=== PATIENT | male | born 1935 | race Caucasian/White ===

== ENCOUNTER → 2017-11-21 | Day surgery (SDC) | payer MEDICARE ==
[2017-10-23 11:36] LABS: BASOPHILS % 0.9 % (0.0-1.0); EOSINOPHILS # (AUTO) 0.1 (0.0-0.4); EOSINOPHILS % 2.2 % (0.0-6.0); HEMATOCRIT 43.4 % (38.2-49.6); HEMOGLOBIN 14.4 g/dL (14.0-18.0); LYMPHOCYTES # (AUTO) 1.6 (1.0-3.2); LYMPHOCYTES % 35.4 % (18.0-39.1); MEAN CORPUSCULAR HEMOGLOBIN 29.4 pg (28-32); MEAN CORPUSCULAR HGB CONC 33.2 g/dL (31-35); MEAN CORPUSCULAR VOLUME 88.8 fL (81-99); MONOCYTES # (AUTO) 0.4 (0.2-0.8); MONOCYTES % 9.6 % (4.4-11.3); NEUTROPHILS # (AUTO) 2.4 (2.1-6.9); NEUTROPHILS % 51.9 % (38.7-80.0); PLATELET COUNT 111 x10e3/uL (140-360); RED BLOOD COUNT 4.89 x10e6/uL (4.3-5.7); RED CELL DISTRIBUTION WIDTH 15.3 % (11.7-14.4)
[2017-10-23 12:02] LABS: INR 1.02; PROTHROMBIN TIME 13.9 seconds (11.9-14.5)
[2017-10-23 12:03] LABS: PARTIAL THROMBOPLASTIN TIME 30.8 seconds (23.8-35.5)
[2017-10-23 12:09] LABS: ALBUMIN 3.5 g/dL (3.5-5.0); ALBUMIN/GLOBULIN RATIO 0.8 (0.8-2.0); ANION GAP 16.5 mmol/L (8-16); CALCIUM 9.2 mg/dL (8.4-10.2); CREATININE, SERUM 1.23 mg/dL (0.72-1.25); POTASSIUM 4.5 mmol/L (3.5-5.1)
[~2017-11-21] MED LIST: AMLODIPINE BESY10 MG PO; BAYER ASPIRIN PO; CLOPIDOGREL75 MG PO; ELLIPTA INH; EPINEPHRINE HCL INJ 1 MG/ML AMP ONE; FENTANYL CITRATE/PF 100MCG/2 ML INJ ONE; FINASTERIDE5 MG PO; FLOMAX0.4 MG PO; FOSINOPRIL SODI10 MG PO; FUROSEMIDE40 MG PO; JALYN 0.5-0.41 EACH PO; LIDOCAINE HCL 2% LOCAL INJ 5 ML SDV VIAL INJ ONE; LIDOCAINE HCL 4% 50 ML BTL ONE; LIDOCAINE JELLY 2% 10ML URO-JET ONE; LOVAZA1 GM PO; METAMUCIL PO; MIDAZOLAM HCL 2 MG/2 ML VIAL ONE; OMEGA 3 PO; OXYMETAZOLINE HCL 0.05% NAS 1 SPRAY BTL ONE; PANTOPRAZOLE SO40 MG PO; PROAIR HFA INH8.5 GM INH; PROPOFOL IV EMULSION 10 MG/ML 20 ML VIAL ONE
--- OUTSIDE RECORDS SUMMARY | 2017-11-21 08:17 | XMS REPORT ---
Author Author [facility] Address Unknown Phone Unavailable Care Team Providers Care Geospatial Imagery Intelligence Analyst Name Role Phone PHILL TIM Unavailable Unavailable Problems This patient has no known problems. Allergies, Adverse Reactions, Alerts This patient has no known allergies or adverse reactions. Medications This patient has no known medications. Results Test Description Test Time Test Comments Text Results Atomic Results Result Comments CT CHEST WO [place] [address] Patient Name: TYLER RAMÍREZ MR #: [id number] : 1935 Age/Sex: 82/M Req #: [id number] Adm Physician: Ordered by: PHILL TIM MD Report #: [id number] Location: CT Room/Bed: Procedure: [id number] CT/CT CHEST WO Exam Date: 09/28/17 Exam Time: 1615 REPORT STATUS: Signed PROCEDURE: CT CHEST WITHOUT CONTRAST CT scan of the chest WITHOUT intravenous contrast, using high-resolution protocol. TECHNIQUE: The chest was scanned utilizing a multidetector helical scanner from the apex to the level of the adrenal glands. No IV contrast was administered per protocol. Coronal and sagittal multiplanar reformations were obtained. COMPARISON: [facility], CT, CT CHEST WO, 05/16/2017, 9:56. INDICATIONS: SOB, COUGH, AND CHEST PAIN WITH INSPIRATION FOR 2-3 MONTHS, HRCT FINDINGS: Lines/tubes: None. Lungs and Airways: No significant interval change in intralobular septal thickening and scattered groundglass opacities predominantly involving the lower lobes, with associated cylindrical bronchiectasis, when compared to prior exam. No impacted bronchi. Slight increase in mild compressive atelectasis of the right lower lobe. No interval change in scarring and traction bronchiectasis involving the right middle lobe, with evidence of volume loss (sagittal image 29). No significant honeycombing is noted. No masses or nodules. Expiratory films show scattered lucent areas with decreased caliber of vessels involving predominantly the upper lobes and superior segment of the lower lobes. Prone views showed decreased compressive atelectasis in the right lower lobe, without any other changes. Central airways are clear, without endobronchial lesions. Pleura: Slight interval increase in size of right-sided pleural effusion. Stable trace left pleural effusion. Heart and mediastinum: Thyroid is unremarkable. Moderate cardiomegaly. No pericardial effusion. Atherosclerotic calcification of the aortic valve, coronary arteries and thoracic aorta. Aorta is non-aneurysmal. The main pulmonary artery is normal in caliber. CABG changes Lymph nodes: Stable mildly enlarged subcarinal lymph node, which measures approximately 1.4 cm in short axis (series 3, image 62). No other mediastinal , or any hilar, or axillary adenopathy. Stable subcentimeter, nonspecific mediastinal nodes. Abdomen: Limited views of the upper abdomen show no abnormality within the visualized liver, spleen. Fatty infiltration of the pancreas. Visualized adrenal glands are unremarkable. Bones: No acute bony abnormalities. Midline sternotomy wires. IMPRESSION: 1. slight interval increase in size of right-sided pleural effusion and compressive atelectasis of the right lower lobe. Stable trace left pleural effusion. 2. Stable findings of NSIP when compared to exam dated 05/16/2017 3. Scattered areas of air trapping in the upper lobes and superior segment of the lower lobes, similar to prior exam, likely reflecting small airways disease. Adis Gamboa M.D. Dictated by: Adis Gamboa M.D. on 09/28/2017 at 18:07 Electronically approved by: Adis Gamboa M.D. on 09/28/2017 at 18:07 Dictated By: ADIS GAMBOA MD [id number] Transcribed By: MATT on 09/28/17 180 COPY TO: PHILL TIM MD
[2017-11-21 12:14] LABS: BODY FLUID COLOR RED
[2017-11-21 12:19] LABS: BODY FLUID APPEARANCE SL.CLOUDY
[2017-11-21 12:55] LABS: BODY FLUID TYPE BRONCH LAVAGE
[2017-11-21 12:56] LABS: RBC,BODY FLUID 20444 cells/uL; WBC,BODY FLUID 2104 cells/uL
--- NOTE | 2017-11-21 13:33 | Operative Report ---
DATE OF PROCEDURE: November 21, 2017 PROCEDURES 1. Diagnostic flexible bronchoscopy. 2. Bronchoalveolar lavage of right middle lobe. 3. Bronchial washes. 4. Endobronchial biopsies, left upper lobe. 5. Endobronchial brushings, left upper lobe. INDICATION: Hemoptysis, diagnosis, interstitial lung disease for diagnosis. ANESTHESIA: Per anesthesiology. CONSENT: Informed consent taken from patient. FINDINGS: Endobronchial scope placed via oral bite block. The flexible bronchoscope was entered and inserted in through the vocal cords, which were seen to be bilaterally moving. Tracheobronchial tree was evaluated to be with normal configuration and no endobronchial masses. Detailed visualization taken to the 3rd to 4th order airways throughout. Right middle lobe was wedged and a BAL was performed there. There was slight progressive bloodiness on specimen. Patient with evaluation of left upper lobe in more detail as it appeared that it was definitely more friable and bloodier than other aspects of the airway, though the slightly bluish glistening surface of left upper lobe approaching anterior airway. No discrete mass here. Some brushings were taken of this area. Endobronchial biopsies were taken of the [place] around the lesion as the amount of bleedability seen foreboding to directly biopsy for the concern that a larger bleed may be triggered. Washings were taken of the area. While the surface of the glistening mucosa was thought to be source of the oozing after a few mobilizations and manipulations of scope in the airway, there was already enough blood there. Other segments were filled with bloodiness. After washes, we cannot completely clear the blood, but it is felt that it is likely this surface that the bleeding. However, the most anterior segment of the anterior segment of left upper lobe was felt to be less likely the source of the bleed. After the above procedures were performed, the scope was withdrawn and the patient was allowed to recover with anesthesiology. IMPRESSION 1. Status post BAL diagnostics for interstitial lung disease. 2. Mild alveolar hemorrhage surmised by BAL of right middle lobe. 3. Significantly increased bleedability emanating from left upper lobe surface at the CHICA foramen. Patient without any discrete mass here. RECOMMENDATIONS: Follow up results. If significant bleeding arises, consider bronchial angiography with IR. Patient will be considered for surveillance CAT scans versus bronchoscopy in the future. Cough medicines are recommended to suppress coughing and suppress the chance of bleeding. COMPLICATIONS: None. ESTIMATED BLOOD LOSS: None. Job#: [id number] PAT GLORIA
[2017-11-21 14:03] LABS: LYMPHOCYTES,BODY FLUID 86 %; MONO/MACROPHG,BODY FLUID 9 %; OTHER CELLS,BODY FLUID 5 %
[2017-11-21 14:11] LABS: NEUTROPHILS,BODY FLUID 0 %
== END | disposition home or self-care (01) ==
LOC: ENDO 08:15
PROVIDERS: ATTEND Internal Medicine Critical Care Medicine
DX: R04.2 Hemoptysis (principal); J18.9 Pneumonia, unspecified organism; J44.9 Chronic obstructive pulmonary disease, unspecified; G47.33 Obstructive sleep apnea (adult) (pediatric); R09.02 Hypoxemia; I48.91 Unspecified atrial fibrillation; I25.810 Atherosclerosis of coronary artery bypass graft(s) without angina pectoris; I11.0 Hypertensive heart disease with heart failure; I50.42 Chronic combined systolic (congestive) and diastolic (congestive) heart failure; E78.5 Hyperlipidemia, unspecified; R01.1 Cardiac murmur, unspecified; E03.9 Hypothyroidism, unspecified; J30.9 Allergic rhinitis, unspecified; E66.9 Obesity, unspecified; K21.0 Gastro-esophageal reflux disease with esophagitis; K57.90 Diverticulosis of intestine, part unspecified, without perforation or abscess without bleeding; Z01.810 Encounter for preprocedural cardiovascular examination; Z01.812 Encounter for preprocedural laboratory examination; Z79.02 Long term (current) use of antithrombotics/antiplatelets; Z79.82 Long term (current) use of aspirin; Z95.1 Presence of aortocoronary bypass graft; Z99.81 Dependence on supplemental oxygen; Z87.891 Personal history of nicotine dependence
CPT/HCPCS: 31623; 31624; 31625; 36415 ×2; 80053; 85025; 85610; 85730; 87071; 87102; 87116; 87205; 87206 ×2; 87335; 88112; 88305; 88312; 89051; 93005; J2001; J2250; 87070; J0171

== ENCOUNTER → 2018-01-15 | Outpatient (CLI) | payer MEDICARE ==
[~2018-01-15] MED LIST changes: -EPINEPHRINE HCL INJ 1 MG/ML AMP ONE; -FENTANYL CITRATE/PF 100MCG/2 ML INJ ONE; +IOPAMIDOL 370 MG/ML 200 ML INFUS..BTL INJ ONE; -LIDOCAINE HCL 2% LOCAL INJ 5 ML SDV VIAL INJ ONE; -LIDOCAINE HCL 4% 50 ML BTL ONE; -LIDOCAINE JELLY 2% 10ML URO-JET ONE; -MIDAZOLAM HCL 2 MG/2 ML VIAL ONE; -OXYMETAZOLINE HCL 0.05% NAS 1 SPRAY BTL ONE; -PROPOFOL IV EMULSION 10 MG/ML 20 ML VIAL ONE; +SODIUM CHLORIDE 0.9% 50ML 50 ML ONE
[2018-01-15 10:17] LABS: BLOOD UREA NITROGEN 17 mg/dL (7-26); BUN/CREATININE RATIO 17 (6-25); CREATININE, SERUM 1.02 mg/dL (0.72-1.25); EST GLOMERULAR FILTRATION RATE > 60 ML/MIN (60-)
--- NOTE | 2018-01-15 14:06 | Diagnostic Imaging Report ---
PROCEDURE:CT CHEST WITH CONTRAST COMPARISON:[facility], CT, CT CHEST WO, 05/16/2017, 9:56. [facility], CT, CT CHEST WO, 09/28/2017, 16:25. [facility], CT, CT CHEST WO, 04/23/2017, 12:18. INDICATIONS:PNEUMONITIS,HEMOPTYSIS TECHNIQUE: Axial CT images of the chest were obtained after the administration of 100 cc of nonionic contrast. Coronal and sagittal reformations were made available for review. RADIATION DOSE: Total DLP: 640.84 mGy*cm Estimated effective dose: (DLP x 0.014 x size factor) mSv FINDINGS: Lungs/Pleura: Right lung: Diffusely hyperinflated. There is referral interstitial thickening at the apex, similar to previous exam. There is interstitial thickening and diffuse groundglass attenuation of the middle lobe and anterior and lateral basal segment of the lower lobe similar to previous exam. There is mild bronchiectasis in the affected lung. A spiculated nodule along the minor fissure on previous exam is no longer visualized. A pleural effusion measures 2.8 cm in thickness and tracks along the lateral and posterior aspect of the lower chest without enhancement of the visceral or parietal pleura. Fluid tracks along the major fissure in a somewhat lobulated pattern towards the hilum. Previously, this pleural effusion measured 2.5 cm in thickness. Eventration of right diaphragm is stable. Left lung: Diffusely hyperinflated with mild fibrosis in the base of the lungs similar to previous exams. No discrete soft tissue mass. Punctate calcification in the posterior lower lobe is stable. No pleural effusion or pleural thickening. Airways: No filling defects in the main airways. There is cylindrical bronchiectasis predominantly of the lower lobes. Heart \T\ Mediastinum:Enlarged cardiac bypass changes. No pericardial effusion. The esophagus is collapsed. Vessels:The main pulmonary artery measures 2.5 cm in diameter. Descending aorta measures 3.7 cm in diameter. Lymph nodes: No enlarged axillary or subclavicular lymph nodes. Subcarinal lymph node measures 1.8 x 2.4 cm (previously, 1.4 x 2.4 cm). Right inferior hilar lymphoid tissue is prominent, measuring 10 mm in thickness. A left hilar lymph node measures 13 mm in longest dimension. Right paratracheal lymph nodes measure up to 11 mm and are stable. Upper abdomen:No evidence of mass in the visualized upper abdomen. There is reflux contrast into the intrahepatic veins. The liver is decreased in attenuation. There is diffuse fatty atrophy of the pancreas. Musculoskeletal:Median sternotomy is well healed. There are mild degenerative changes of the spine without compression fracture. No lytic or blastic lesions. CONCLUSION: Enlarging, loculated right pleural effusion in the area of focal pulmonary fibrosis in the mid and lower lung zones of the right lung. A right inferior hilar lymph node is mildly prominent. A prominent subcarinal lymph node is stable. In addition to infectious/inflammatory processes, a neoplastic process should be considered. 2-3 month follow-up CT of the chest is recommended to assess interval change. If there has been no improvement, consider bronchoscopy and biopsy. 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 Dictated by: Desiree Grayson M.D. on 01/15/2018 at 14:07 Electronically approved by: Desiree Grayson M.D. on 01/15/2018 at 14:07
== END ==
LOC: CT 09:29
PROVIDERS: ATTEND Internal Medicine Critical Care Medicine
DX: J44.9 Chronic obstructive pulmonary disease, unspecified (principal); J18.9 Pneumonia, unspecified organism; R09.02 Hypoxemia; R04.2 Hemoptysis; I50.22 Chronic systolic (congestive) heart failure; R94.2 Abnormal results of pulmonary function studies; G47.33 Obstructive sleep apnea (adult) (pediatric); J45.40 Moderate persistent asthma, uncomplicated; K21.0 Gastro-esophageal reflux disease with esophagitis; J30.9 Allergic rhinitis, unspecified; E66.9 Obesity, unspecified
CPT/HCPCS: 36415; 71260; 82565; 84520; 94060; 94727; 94729; Q9967

== ENCOUNTER → 2018-05-27 | Outpatient (CLI) | payer MEDICARE ==
[~2018-05-27] MED LIST changes: -IOPAMIDOL 370 MG/ML 200 ML INFUS..BTL INJ ONE; -SODIUM CHLORIDE 0.9% 50ML 50 ML ONE
--- NOTE | 2018-05-27 13:24 | Diagnostic Imaging Report ---
EXAM: CT Chest WITHOUT contrast INDICATION: \[id number] \S\[id number] \S\CHRONIC OBSTRUCTIVE PULMONARY DIS COMPARISON: CT dated 01/15/2018 TECHNIQUE: Chest was scanned utilizing a multidetector helical scanner from the lung apex through the level of the adrenal glands without administration of IV contrast. Absence of intravenous contrast decreases sensitivity for detection of lymphadenopathy and vascular pathology. Coronal and sagittal reformations were obtained. Routine protocol was performed. IV CONTRAST: None COMPLICATIONS: None RADIATION DOSE: Total DLP: 665.95 mGy*cm Estimated effective dose: (DLP x 0.014 x size factor) mSv CTDIvol has been reviewed. It is below the limits set by the Radiation Protocol Committee (RPC). FINDINGS: LINES/ TUBES: Left chest wall cardiac device in place with distal lead terminating in right ventricle. LUNGS AND AIRWAYS: Mild vascular congestion and interstitial edema. Airways are normal. No overt signs of fibrosis or COPD on this exam. Mild dependent atelectasis. PLEURA: Trace right pleural effusion, decreased from prior exam. HEART AND MEDIASTINUM: The thyroid gland is normal. Increased number of subcentimeter mediastinal lymph nodes, not significantly changed from prior exam. For example unchanged 2.3 x 1.8 cm subcarinal lymph node (series 2, image 29). Limited for evaluation of hilar regions without intravenous contrast. No axillary lymphadenopathy. Cardiomegaly. There is no pericardial effusion. Severe atherosclerotic calcification of coronary arteries with evidence of CABG surgery. Main pulmonary artery measures 3 cm. UPPER ABDOMEN: Unremarkable. Partially imaged bilateral perinephric fat stranding. Atrophic pancreas. BONES: The visualized bony thorax is within normal limits. SOFT TISSUES: Unremarkable. IMPRESSION: 1. Unchanged prominent indeterminate mediastinal lymph nodes, the largest in the subcarinal region measuring 2.3 cm. 2. Trace right pleural effusion, decreased from prior CT. 3. Mild vascular congestion and interstitial edema. Signed by: Dr. Anuel Lamb MD on 05/27/2018 1:20 PM
== END ==
LOC: CT 12:07
PROVIDERS: ATTEND Internal Medicine Critical Care Medicine
DX: J44.9 Chronic obstructive pulmonary disease, unspecified (principal); R04.2 Hemoptysis; R09.02 Hypoxemia; J18.9 Pneumonia, unspecified organism; J45.40 Moderate persistent asthma, uncomplicated; J30.9 Allergic rhinitis, unspecified; R94.2 Abnormal results of pulmonary function studies; G47.33 Obstructive sleep apnea (adult) (pediatric); K21.0 Gastro-esophageal reflux disease with esophagitis; E66.9 Obesity, unspecified; Z87.891 Personal history of nicotine dependence
CPT/HCPCS: 71250

== ENCOUNTER → 2018-11-07 | Outpatient (CLI) | payer MEDICARE ==
--- NOTE | 2018-11-07 09:52 | Diagnostic Imaging Report ---
EXAMINATION: CT scan of the chest without contrast. TECHNIQUE: Spiral CT images of the chest were performed from the lung apices to the level of the adrenal glands. No intravenous contrast was administered per referring physician request. Coronal and sagittal reformatted images were obtained. COMPARISON: 05/27/2018 CLINICAL HISTORY:COPD DISCUSSION: ABSENCE OF INTRAVENOUS CONTRAST DECREASES SENSITIVITY FOR DETECTION OF FOCAL LESIONS AND VASCULAR PATHOLOGY. LINES/TUBES: None. LUNGS AND AIRWAYS: Scattered foci of juxtapleural reticulation and groundglass opacity are again noted. Linear opacities in the right middle lobe and bilateral lower lobes, unchanged. Bilateral lower lobe predominant bronchiectasis, likely postinfectious. 4 mm groundglass nodule in the left lower lobe seen on series 3 image 93. Trachea and mainstem bronchi are patent. PLEURA: Trace right pleural effusion described on the comparison examination has resolved. No pneumothorax. HEART AND MEDIASTINUM: Visualized portions of the thyroid gland appear normal. Stable position of left subclavian approach implantable cardiac device body and leads. Mild enlargement of the heart without pericardial effusion. Atherosclerotic calcification of the aortic annulus and [place] coronary arteries postsurgical changes of coronary artery bypass. No ectasia or aneurysmal dilatation of the thoracic aorta. Pulmonary outflow tract is of normal caliber. As before there are scattered mildly prominent mediastinal lymph nodes measuring up to 1.5 cm at the subcarinal station. [employer] lymph nodes have largely decreased in size compared to the prior examination. LYMPH NODES: As above ABDOMEN: Visualized portions of the liver, gallbladder, spleen, pancreas, and right adrenal gland are unremarkable. BONES AND SOFT TISSUES: No focal soft tissue abnormalities. Status post median sternotomy. No osseous destructive lesions. IMPRESSION: No specific CT findings of COPD. Scattered reticular and groundglass opacities likely reflect age-related fibrotic changes. Mild bilateral lower lobe bronchiectasis likely post infectious. 4 mm groundglass left lower lobe pulmonary nodule should be assessed for stability by CT scan of the chest without contrast in one year. Atherosclerotic vascular disease with postsurgical changes related to coronary artery bypass and implantable cardiac device placement. Improved mediastinal lymphadenopathy relative to 05/27/2018. Signed by: Dr. Seng Ravi M.D. on 11/07/2018 9:49 AM
== END ==
LOC: CT 09:03
PROVIDERS: ATTEND Internal Medicine Critical Care Medicine
DX: R04.2 Hemoptysis (principal); R09.02 Hypoxemia; J18.9 Pneumonia, unspecified organism; R94.2 Abnormal results of pulmonary function studies; J30.9 Allergic rhinitis, unspecified; J44.9 Chronic obstructive pulmonary disease, unspecified; I50.22 Chronic systolic (congestive) heart failure; J45.40 Moderate persistent asthma, uncomplicated; E66.9 Obesity, unspecified; G47.33 Obstructive sleep apnea (adult) (pediatric); K21.0 Gastro-esophageal reflux disease with esophagitis; Z87.891 Personal history of nicotine dependence
CPT/HCPCS: 71250

== ENCOUNTER → 2018-11-28 | Outpatient (CLI) | payer MEDICARE | LOC: RESP 09:25 | PROVIDERS: ATTEND Internal Medicine Critical Care Medicine | DX: R09.02 Hypoxemia (principal); J18.9 Pneumonia, unspecified organism; R04.2 Hemoptysis; J44.9 Chronic obstructive pulmonary disease, unspecified; I50.22 Chronic systolic (congestive) heart failure; R94.2 Abnormal results of pulmonary function studies; J45.40 Moderate persistent asthma, uncomplicated; J30.9 Allergic rhinitis, unspecified; K21.0 Gastro-esophageal reflux disease with esophagitis; G47.33 Obstructive sleep apnea (adult) (pediatric); E66.9 Obesity, unspecified; Z87.891 Personal history of nicotine dependence | CPT/HCPCS: 94010; 94727; 94729 ==

== ENCOUNTER → 2018-12-23 | Outpatient (CLI) | payer MEDICARE ==
[~2018-12-23] MED LIST changes: +DIATRIZOATE MEGL/DIATRIZOA SOD 30 ML BTL PO ONE; +IOPAMIDOL 370 MG/ML 200 ML INFUS..BTL INJ ONE; +SODIUM CHLORIDE 0.9% 50ML 50 ML ONE
[2018-12-23 13:13] LABS: BLOOD UREA NITROGEN 15 mg/dL (7-26); BUN/CREATININE RATIO 15 (6-25); CREATININE, SERUM 1.02 mg/dL (0.72-1.25); EST GLOMERULAR FILTRATION RATE > 60 ML/MIN (60-)
--- NOTE | 2018-12-23 17:47 | Diagnostic Imaging Report ---
EXAMINATION: CT of the abdomen and pelvis with contrast. TECHNIQUE: Spiral CT images of the abdomen and pelvis were performed from the lung bases to the lesser trochanters after the intravenous administration of 100 cc of Isovue 370 and the oral administration of dilute Gastrografin. Coronal and sagittal reformatted images were obtained. COMPARISON: CT abdomen and pelvis with contrast 12/02/2009 CLINICAL HISTORY:Left lower quadrant abdominal pain, history of diverticulitis DISCUSSION: ABDOMEN/PELVIS: LOWER THORAX:Stable linear scarring in the lateral left lower lobe and lateral right lower lobe. Mild cardiomegaly. Atherosclerotic calcification of the aortic valves, coronary arteries and thoracic aorta. No pericardial effusion. Distal portion of cardiac wire noted in the right ventricle. HEPATOBILIARY: Decreased attenuation of the hepatic parenchyma compared to the spleen, consistent with steatosis. Normal hepatic size and contour. No focal lesions. No intra or extrahepatic biliary ductal dilation. GALLBLADDER: No radio-opaque stones or sludge. No wall thickening. SPLEEN: No splenomegaly. PANCREAS: No focal masses or ductal dilatation. Fatty replacement. ADRENALS: No adrenal nodules. KIDNEYS/URETERS: No hydronephrosis, stones, or solid mass lesions. Bilateral cortical thinning. Bilateral nonspecific mild perinephric stranding. PELVIC ORGANS/BLADDER: Bladder is unremarkable. Dystrophic calcifications in the prostate. PERITONEUM/RETROPERITONEUM: No free air or fluid. LYMPH NODES: No intra-abdominal, retroperitoneal, pelvic or inguinal lymphadenopathy. VESSELS: Atherosclerotic calcification of the abdominal aorta and iliac vessels. GI TRACT: No bowel dilation or evidence of obstruction. No pericolonic inflammatory changes. Descending and sigmoid colon diverticulosis, without surrounding fat stranding to suggest diverticulitis. No evidence of perforation or abscess formation. BONES AND SOFT TISSUE: No aggressive lytic lesions. Generalized osteopenia. Soft tissues are grossly unremarkable. IMPRESSION: 1. No acute abdominopelvic abnormalities. Specifically, no acute abnormal findings in the left lower quadrant to explain the patient's pain. 2. Descending and sigmoid colon diverticulosis, without diverticulitis. 3. Hepatic steatosis. Signed by: Dr. Calin Carr M.D. on 12/23/2018 5:44 PM
== END ==
LOC: CT 12:26
PROVIDERS: ATTEND Internal Medicine Gastroenterology
DX: R10.32 Left lower quadrant pain (principal); K57.30 Diverticulosis of large intestine without perforation or abscess without bleeding; K76.0 Fatty (change of) liver, not elsewhere classified
CPT/HCPCS: 36415; 74177; 82565; 84520; Q9967

== ENCOUNTER → 2019-03-17 | Outpatient (CLI) | payer MEDICARE ==
[~2019-03-17] MED LIST changes: -DIATRIZOATE MEGL/DIATRIZOA SOD 30 ML BTL PO ONE; -IOPAMIDOL 370 MG/ML 200 ML INFUS..BTL INJ ONE; -SODIUM CHLORIDE 0.9% 50ML 50 ML ONE
--- NOTE | 2019-03-17 15:43 | Diagnostic Imaging Report ---
EXAM: Lumbar spine radiographs-5 views INDICATION: Low back pain COMPARISON: CT abdomen/pelvis 12/23/2018. FINDINGS: BONES: The alignment is within normal limits. No acute displaced fractures. Vertebral body heights are unchanged compared to CT on 12/23/2018. Diffuse osteopenia. DISCS: Mild degenerative disc changes, most pronounced at L5-S1. JOINTS: Mild facet degenerative changes in the lower lumbar spine. SOFT TISSUES: Extensive atherosclerotic vascular calcifications. IMPRESSION: No acute radiographic abnormality. Mild degenerative disc and facet degenerative changes in the lower lumbar spine. Signed by: Dr. Dev Conklin MD on 03/17/2019 3:39 PM
== END ==
LOC: RAD 14:36
DX: M54.5 Low back pain (principal)
CPT/HCPCS: 72110

== ENCOUNTER → 2020-05-11 | Outpatient (CLI) | payer MEDICARE | LOC: RESP 13:56 | PROVIDERS: ATTEND Internal Medicine Critical Care Medicine | DX: R04.2 Hemoptysis (principal); J18.9 Pneumonia, unspecified organism; R09.02 Hypoxemia; J47.9 Bronchiectasis, uncomplicated; J30.9 Allergic rhinitis, unspecified; I50.22 Chronic systolic (congestive) heart failure; R94.2 Abnormal results of pulmonary function studies; J45.40 Moderate persistent asthma, uncomplicated; E66.9 Obesity, unspecified; G47.33 Obstructive sleep apnea (adult) (pediatric); K21.0 Gastro-esophageal reflux disease with esophagitis; Z87.891 Personal history of nicotine dependence ==

== ENCOUNTER → 2021-07-18 | Outpatient (CLI) | payer MEDICARE | LOC: RAD 13:41 | DX: R05.9 Cough, unspecified (principal) | CPT/HCPCS: 71046 ==

== ENCOUNTER → 2021-12-01 | Outpatient (CLI) | payer MEDICARE | LOC: RAD 15:31 | DX: R10.10 Upper abdominal pain, unspecified (principal) | CPT/HCPCS: 74018 ==

== ENCOUNTER → 2022-01-05 | Outpatient (CLI) | payer MEDICARE | LOC: RAD 15:22 | DX: R05.3 Chronic cough (principal) | CPT/HCPCS: 71046 ==

== ENCOUNTER → 2022-01-31 | Outpatient (CLI) | payer MEDICARE ==
[~2022-01-31] MED LIST changes: +IOPAMIDOL 370 MG/ML 100 ML INFUS..BTL INJ ONE; +SODIUM CHLORIDE 0.9% 500ML 500 ML ONE; +SODIUM CHLORIDE 0.9% 50ML 50 ML ONE
[2022-01-31 11:12] LABS: CREATININE, SERUM 1.28 mg/dL (0.72-1.25)
== END ==
LOC: CT 10:14
DX: R05.3 Chronic cough (principal)
CPT/HCPCS: 36415; 71260; 82565; 84520; 96360; J7040; Q9967

== ENCOUNTER → 2022-02-10 | Day surgery (SDC) | payer MEDICARE ==
[2022-02-07 11:25] LABS: BASOPHILS % 0.8 % (0.0-1.0); EOSINOPHILS # (AUTO) 0.1 (0.0-0.4); EOSINOPHILS % 2.7 % (0.0-6.0); HEMATOCRIT 39.2 % (38.2-49.6); HEMOGLOBIN 12.7 g/dL (14.0-18.0); LYMPHOCYTES # (AUTO) 0.7 (1.0-3.2); LYMPHOCYTES % 25.2 % (18.0-39.1); MEAN CORPUSCULAR HEMOGLOBIN 30.9 pg (28-32); MEAN CORPUSCULAR HGB CONC 32.4 g/dL (31-35); MEAN CORPUSCULAR VOLUME 95.4 fL (81-99); MONOCYTES # (AUTO) 0.3 (0.2-0.8); MONOCYTES % 12.6 % (4.4-11.3); NEUTROPHILS # (AUTO) 1.5 (2.1-6.9); NEUTROPHILS % 58.3 % (38.7-80.0); RED BLOOD COUNT 4.11 x10e6/uL (4.3-5.7); RED CELL DISTRIBUTION WIDTH 15.3 % (11.7-14.4)
[2022-02-07 11:28] LABS: PLATELET COUNT 76 x10e3/uL (140-360)
[2022-02-07 11:36] LABS: INR 1.56
[2022-02-07 11:37] LABS: PARTIAL THROMBOPLASTIN TIME 35.7 seconds (23.8-35.5)
[2022-02-07 11:47] LABS: ALBUMIN 2.7 g/dL (3.5-5.0); ALBUMIN/GLOBULIN RATIO 0.5 (0.8-2.0); ANION GAP 12.6 mmol/L (8-16); CALCIUM 8.4 mg/dL (8.4-10.2); CREATININE, SERUM 1.11 mg/dL (0.72-1.25); POTASSIUM 4.6 mmol/L (3.5-5.1)
[~2022-02-10] MED LIST changes: +BENZONATATE100 MG PO; +CARVEDILOL12.5 MG PO; +CRESTOR10 MG PO; +DIGOXIN125 MCG PO; +ELIQUIS2.5 MG PO; +ETOMIDATE 2 MG/ML 10 ML INJ IV ONE; +GABAPENTIN300 MG PO; -IOPAMIDOL 370 MG/ML 100 ML INFUS..BTL INJ ONE; +LEVOTHYROXINE50 MCG PO; +METFORMIN HCL500 MG PO; +NEURONTIN100 MG PO; +POVIDONE IODINE 0.05% 0.05 % ML PO ONE; +PROPOFOL IV EMULSION 10 MG/ML 20 ML VIAL ONE; -SODIUM CHLORIDE 0.9% 500ML 500 ML ONE; -SODIUM CHLORIDE 0.9% 50ML 50 ML ONE
[2022-02-10 08:30] VITALS: BP 127/82
== END | disposition home or self-care (01) ==
LOC: OR 05:55
PROVIDERS: ATTEND Internal Medicine Gastroenterology
DX: K70.31 Alcoholic cirrhosis of liver with ascites (principal); I85.10 Secondary esophageal varices without bleeding; K29.50 Unspecified chronic gastritis without bleeding; K76.6 Portal hypertension; K31.89 Other diseases of stomach and duodenum; Z71.3 Dietary counseling and surveillance; I25.810 Atherosclerosis of coronary artery bypass graft(s) without angina pectoris; I11.0 Hypertensive heart disease with heart failure; I50.9 Heart failure, unspecified; E78.00 Pure hypercholesterolemia, unspecified; E11.9 Type 2 diabetes mellitus without complications; E03.9 Hypothyroidism, unspecified; R05.9 Cough, unspecified; Z88.2 Allergy status to sulfonamides; Z88.8 Allergy status to other drugs, medicaments and biological substances; Z01.810 Encounter for preprocedural cardiovascular examination; Z01.812 Encounter for preprocedural laboratory examination; Z20.822 Contact with and (suspected) exposure to COVID-19; Z79.02 Long term (current) use of antithrombotics/antiplatelets; Z68.34 Body mass index [BMI] 34.0-34.9, adult; Z95.5 Presence of coronary angioplasty implant and graft; Z95.0 Presence of cardiac pacemaker; Z95.1 Presence of aortocoronary bypass graft
CPT/HCPCS: 36415 ×2; 43239; 43244; 80053; 82948; 85025; 85610; 85730; 88305; 88312; 93005; C9113; J2704; U0002; 43270

== ENCOUNTER → 2022-02-13 | Outpatient (CLI) | payer MEDICARE ==
[~2022-02-13] MED LIST changes: +ALBUMIN 25% 12.5GM 50ML 150 ML IV ONE; +ALBUMIN 25% 12.5GM 50ML 50 ML IV ONE; -ETOMIDATE 2 MG/ML 10 ML INJ IV ONE; -POVIDONE IODINE 0.05% 0.05 % ML PO ONE; -PROPOFOL IV EMULSION 10 MG/ML 20 ML VIAL ONE
[2022-02-13 19:45] LABS: BODY FLUID APPEARANCE SL.CLOUDY; BODY FLUID COLOR YELLOW; MONO/MACROPHG,BODY FLUID 6 %; NEUTROPHILS,BODY FLUID 4 %
[2022-02-13 19:46] LABS: LYMPHOCYTES,BODY FLUID 60 %; OTHER CELLS,BODY FLUID 30 %
[2022-02-13 19:48] LABS: RBC,BODY FLUID 1000 cells/uL; WBC,BODY FLUID 218 cells/uL
[2022-02-13 19:49] LABS: BODY FLUID TYPE PERITONEAL
== END ==
LOC: US 09:36
PROVIDERS: ATTEND Internal Medicine Gastroenterology
DX: K70.31 Alcoholic cirrhosis of liver with ascites (principal)
CPT/HCPCS: 36415; 49083; 82040; 84157; 87070; 87205; 88112; 88305; 89051

== ENCOUNTER 2022-02-27 11:53 | Emergency (ER) | payer MEDICARE ==
[~2022-02-27] VITALS: Ht 175.3 cm; Wt 93.0 kg
[~2022-02-27 11:53] MED LIST changes: -ALBUMIN 25% 12.5GM 50ML 150 ML IV ONE; -ALBUMIN 25% 12.5GM 50ML 50 ML IV ONE
[2022-02-27] MEDS ORDERED: TETRACAINE HCL 0.5% OPTH SOLN 4 ML BTL ONE (12:14)
[2022-02-27] MEDS ORDERED: FLUORESCEIN SOD(OPTH) 1 MG STRP ONE (12:14)
[2022-02-27] MEDS ORDERED: EYE IRRIGATION (OPTH) 120 ML BTL OP ONE (12:15)
[2022-02-27] MEDS ORDERED: TETRACAINE HCL 0.5% OPTH SOLN 4 ML BTL OP ONE (12:15)
[2022-02-27] MEDS ORDERED: EYE IRRIGATION (OPTH) 120 ML BTL ONE (12:15)
[2022-02-27] MEDS ORDERED: FLUORESCEIN SOD(OPTH) 1 MG STRP OP ONE (12:15)
== END 2022-02-27 13:08 | disposition home or self-care (01) ==
LOC: ER 12:20
DX: H57.9 Unspecified disorder of eye and adnexa (principal); I25.10 Atherosclerotic heart disease of native coronary artery without angina pectoris; I25.2 Old myocardial infarction; Z95.1 Presence of aortocoronary bypass graft; Z95.810 Presence of automatic (implantable) cardiac defibrillator
CPT/HCPCS: 99284

== ENCOUNTER → 2022-03-14 | Outpatient (CLI) | payer MEDICARE ==
[~2022-03-14] MED LIST changes: +ALBUMIN 25% 12.5GM 50ML 250 ML IV ONE
[2022-03-14 13:19] LABS: INR 1.11; PROTHROMBIN TIME 15.3 seconds (11.9-14.5)
[2022-03-14 13:20] LABS: PARTIAL THROMBOPLASTIN TIME 32.5 seconds (23.8-35.5)
== END ==
LOC: US 11:51
PROVIDERS: ATTEND Internal Medicine Gastroenterology
DX: K70.31 Alcoholic cirrhosis of liver with ascites (principal)
CPT/HCPCS: 36415; 49083; 85014; 85610; 85730

== ENCOUNTER → 2022-04-10 | Outpatient (CLI) | payer MEDICARE ==
[~2022-04-10] MED LIST changes: -ALBUMIN 25% 12.5GM 50ML 250 ML IV ONE
[2022-04-10 10:41] LABS: HEMOGLOBIN 12.1 g/dL (14.0-18.0)
[2022-04-10 10:50] LABS: INR 1.37
[2022-04-10 10:51] LABS: PARTIAL THROMBOPLASTIN TIME 35.1 seconds (23.8-35.5)
== END ==
LOC: US 09:59
PROVIDERS: ATTEND Internal Medicine Gastroenterology
DX: K70.31 Alcoholic cirrhosis of liver with ascites (principal)
CPT/HCPCS: 36415; 49083; 85014; 85049; 85610; 85730

== ENCOUNTER → 2022-04-12 | Outpatient (CLI) | payer MEDICARE ==
[~2022-04-12] MED LIST changes: +ALBUMIN 25% 12.5GM 50ML 100 ML IV ONE; +ALBUMIN 25% 12.5GM 50ML 200 ML IV ONE
== END ==
LOC: US 09:01
PROVIDERS: ATTEND Internal Medicine Gastroenterology
DX: K70.31 Alcoholic cirrhosis of liver with ascites (principal)
CPT/HCPCS: C1729

== ENCOUNTER → 2022-05-11 | Outpatient (CLI) | payer MEDICARE ==
[~2022-05-11] MED LIST changes: -ALBUMIN 25% 12.5GM 50ML 100 ML IV ONE; -ALBUMIN 25% 12.5GM 50ML 200 ML IV ONE; +ALBUMIN 25% 12.5GM 50ML 300 ML IV ONE
[2022-05-11 12:25] LABS: HEMATOCRIT 38.4 % (38.2-49.6); HEMOGLOBIN 12.2 g/dL (14.0-18.0)
[2022-05-11 12:38] LABS: INR 1.13; PROTHROMBIN TIME 15.5 seconds (11.9-14.5)
[2022-05-11 12:39] LABS: PARTIAL THROMBOPLASTIN TIME 34.9 seconds (23.8-35.5)
== END ==
LOC: US 11:41
PROVIDERS: ATTEND Internal Medicine Gastroenterology
DX: K70.31 Alcoholic cirrhosis of liver with ascites (principal)
CPT/HCPCS: 36415; 49083; 85014; 85018; 85049; 85610; 85730; C1729

== ENCOUNTER → 2022-06-08 | Outpatient (CLI) | payer MEDICARE ==
[~2022-06-08] MED LIST changes: +ALBUMIN 25% 12.5GM 50ML 150 ML IV ONE; -ALBUMIN 25% 12.5GM 50ML 300 ML IV ONE; +ALBUMIN 25% 12.5GM 50ML 50 ML IV ONE
== END ==
LOC: US 11:47
DX: K70.31 Alcoholic cirrhosis of liver with ascites (principal)
CPT/HCPCS: 49083; C1729

== ENCOUNTER 2022-06-18 15:51 | Emergency (ER) | payer MEDICARE ==
[~2022-06-18] VITALS: Ht 175.3 cm; Wt 93.0 kg
[~2022-06-18 15:51] MED LIST changes: -ALBUMIN 25% 12.5GM 50ML 150 ML IV ONE; -ALBUMIN 25% 12.5GM 50ML 50 ML IV ONE
[2022-06-18] MEDS ORDERED: LIDOCAINE 4% PATCH TP ONE (16:30)
[2022-06-18] MEDS ORDERED: TRAMADOL HCL 50 MG TAB PO ONE (16:45)
[2022-06-18] MEDS ORDERED: MEDROL4 M2 PO (18:14)
[2022-06-18] MEDS ORDERED: ULTRAM 50MG50 MG PO (18:14)
== END 2022-06-18 18:24 | disposition home or self-care (01) ==
LOC: ER 16:18
DX: M54.41 Lumbago with sciatica, right side (principal); I25.10 Atherosclerotic heart disease of native coronary artery without angina pectoris; K76.9 Liver disease, unspecified; R18.8 Other ascites; I25.2 Old myocardial infarction; Z95.1 Presence of aortocoronary bypass graft; Z95.810 Presence of automatic (implantable) cardiac defibrillator
CPT/HCPCS: 72110; 99283